=== PATIENT | female | born 1980 | race Caucasian/White ===

== ENCOUNTER 2019-08-13 00:55 | Emergency (ER) | payer BC, OTHER ==
[~2019-08-13] VITALS: Ht 157.5 cm; Wt 88.5 kg
[~2019-08-13 00:55] MED LIST: ALBU-136 IH; ALPR2TAB1 PO; ATRN INH; FLUT1DSK2 IH
[2019-08-13 01:00] VITALS: BP 126/90
--- NOTE | 2019-08-13 01:00 | NUR ---
TO BED # 04 AMBULATORY
[2019-08-13] MEDS ORDERED: LORazepam 1 MG TAB PO ONE (01:30)
--- NOTE | 2019-08-13 01:30 | NUR ---
38 YEAR OLD FEMALE COMPLAINS OF ANXIETY X 6 DAYS. PATIENT STATES SHE HAS HAD SOME PALPITATIONS AND SOME CHEST DISCOMFORT SINCE LAST NIGHT AT 9PM. PATIENT DENIES CHEST PAIN, SOB, N/V/D. PATIENT AOX4, BREATHING EVEN AND UNLABORED, SKIN WARM AND DRY. BED IN LOWEST POSITION, LOCKED, BED RAIL UPX1.
[2019-08-13 02:27] LABS: BARBITURATE, URINE NEG. ng/ml (NEG <=200); BENZODIAZEPINE, URINE NEG. ng/mL (NEG <=200); CANNABINOID, URINE NEG. ng/mL (NEG <=50); COCAINE, URINE NEG. ng/mL (NEG <=300); OPIATE, URINE NEG. ng/mL (NEG <=2000); PHENCYCLIDINE SCREEN,URINE NEG. ng/mL (NEG <=25)
[2019-08-13 02:32] LABS: ALBUMIN 3.6 g/dL (3.4-5.0); ANION GAP 11.2 (8-16); CARBON DIOXIDE 28.5 mmol/L (21-32); CREATININE 0.9 mg/dL (0.6-1.3); POTASSIUM 3.7 mmol/L (3.5-5.1); TOTAL BILIRUBIN 0.3 mg/dL (0.0-1.0)
[2019-08-13 02:40] VITALS: BP 120/87
--- NOTE | 2019-08-13 02:40 | NUR ---
Patient discharged with v/s stable. Written and verbal after care instructions ABOUT ANXIETY AND PANIC ATTACKS given and explained. Patient verbalized understanding. Ambulatory with steady gait. All questions addressed prior to discharge. Advised to follow up with PMD.
[2019-08-13 02:48] LABS: BASOPHILS % (AUTO) 0.5 % (0.0-2.0); EOSINOPHILS # (AUTO) 0.2 K/uL (0-0.4); EOSINOPHILS % (AUTO) 2.8 % (0.0-4.0); HEMATOCRIT 41.9 % (36-48); HEMOGLOBIN 14.2 g/dL (12.0-16.0); LYMPHOCYTES # (AUTO) 1.7 K/uL (2.5-16.5); LYMPHOCYTES % (AUTO) 22.6 % (20.5-51.1); MEAN CORPUSCULAR HEMOGLOBIN 34 pg (27-31); MEAN CORPUSCULAR HGB CONC 34 g/dL (33-37); MEAN CORPUSCULAR VOLUME 98.7 fL (80-94); MONOCYTES # (AUTO) 0.5 K/uL (0.8-1.0); MONOCYTES % (AUTO) 6.3 % (1.7-9.3); NEUTROPHILS # (AUTO) 5.1 K/uL (1.8-7.7); NEUTROPHILS % (AUTO) 67.8 % (42.2-75.2); PLATELET COUNT (AUTO) 198 K/uL (140-450); RED BLOOD CELL COUNT(AUTO) 4.25 MIL/uL (4.20-5.40); RED CELL DISTRIBUTION WIDTH 12.8 % (11.6-13.7); WHITE BLOOD COUNT (AUTO) 7.5 K/uL (4.8-10.8)
== END 2019-08-13 02:40 | disposition home or self-care (01) ==
LOC: MED 00:55
DX: F41.9 Anxiety disorder, unspecified (principal); J45.909 Unspecified asthma, uncomplicated; Z98.890 Other specified postprocedural states
CPT/HCPCS: 36415; 71045; 80053; 80305; 81002; 84484; 85025; 93005; 99284; Q0092